=== PATIENT | female | born 1985 | race Caucasian/White ===

== ENCOUNTER 2022-02-25 13:00 | Inpatient (IN) | payer OTHER ==
[2022-02-25] MEDS ORDERED: OXYTOCIN 30 UNITS in 0.9% NS 30 UNIT/500 ML INFUS.BAG IVPB ONE (13:39)
[2022-02-25] MEDS ORDERED: SODIUM CHLORIDE 0.9% P/F 10 ML VIAL IJ ONE (13:40)
[2022-02-25] MEDS ORDERED: ceFAZolin SODIUM 1 GM VIAL ONE (13:40)
[2022-02-25] MEDS ORDERED: ONDANSETRON 4 MG/2 ML VIAL ONE (13:40)
[2022-02-25] MEDS ORDERED: morphine SULFATE/PF 1 MG/2 ML (2cc Syringe - QUVA) ONE (13:40)
[2022-02-25] MEDS ORDERED: KETOROLAC TROMETHAMINE 30 MG/1 ML VIAL ONE (13:40)
[2022-02-25] MEDS ORDERED: ePHEDrine SULFATE 50 MG/1 ML AMPULE ONE (13:41)
[2022-02-25] MEDS ORDERED: ELECTROLYTE-148 SOLN 1,000 ML IV SCH (14:00)
[2022-02-25] MEDS ORDERED: ELECTROLYTE-148 SOLN 500 ML IV ONE (14:00)
[2022-02-25] MEDS ORDERED: CITRIC ACID/SODIUM CITRATE 30 ML UNIT-DOSE CUP PO ONE (14:00)
[2022-02-25] MEDS ORDERED: IBUPROFEN 800 MG/8 ML IJ IVPB PRN (14:23)
[2022-02-25] MEDS ORDERED: ACETAMINOPHEN 325 MG TABLET (FP) PO PRN (14:23)
[2022-02-25 14:43] VITALS: BMI 33.6
[2022-02-25] MEDS ORDERED: ACETAMINOPHEN 1000 MG/100 ML BAG IVPB PRN (15:51)
[2022-02-25] MEDS ORDERED: ONDANSETRON 4 MG/2 ML VIAL IVPUSH PRN (15:51)
[2022-02-25] MEDS ORDERED: OXYTOCIN 20 UNITS in 0.9% NS 20 UNIT/1,000 ML INFUS.BAG IV ONE (17:02)
[2022-02-25] MEDS: OXYTOCIN 20 UNITS in 0.9% NS 20 UNIT/1,000 ML INFUS.BAG IV SCH (17:14)
[2022-02-26] MEDS: OXYTOCIN 20 UNITS in 0.9% NS 20 UNIT/1,000 ML INFUS.BAG IV SCH (01:06)
[2022-02-26] MEDS ORDERED: oxyCODONE HCL 5 MG TABLET PO PRN (02:23)
[2022-02-26 09:33] LABS: BASO % 0.3 % (0-2.0); EOS % 1.2 % (0-4.5); HEMATOCRIT 34.5 % (32.4-45.2); HEMOGLOBIN 11.7 GM/dL (10.7-15.3); LYMPH % 13.2 % (8-40); MEAN CELL VOLUME 88.2 fl (80-96); MEAN PLT VOLUME 8.8 fl (7.5-11.1); MONO % 6.2 % (3.8-10.2); NEUT % 79.1 % (42.8-82.8); PLATELET COUNT 193 10^3/uL (134-434); RBC 3.91 M/mm3 (3.60-5.2); RDW 17.2 % (11.6-15.6)
[2022-02-26] MEDS: IBUPROFEN 600 MG TABLET (FP) PO PRN ×2 (09:35→21:26)
[2022-02-26] MEDS ORDERED: BISACODYL 10 MG SUPP.RECT RC PRN (14:23)
[2022-02-26] MEDS: SIMETHICONE 80 MG TAB.CHEW (FP) PO PRN (21:25)
[2022-02-27 14:37] VITALS: RESP 18
[2022-02-27] MEDS: IBUPROFEN 600 MG TABLET (FP) PO PRN (15:51)
[2022-02-28] MEDS: IBUPROFEN 600 MG TABLET (FP) PO PRN (07:57)
[2022-02-28] MEDS: SIMETHICONE 80 MG TAB.CHEW (FP) PO PRN (07:57)
[2022-02-28 09:51] VITALS: BP 100/77; PULSE 77; TEMP 98.2
[2022-02-28 09:52] LABS: BASO % 0.2 % (0-2.0); EOS % 1.6 % (0-4.5); HEMATOCRIT 34.1 % (32.4-45.2); HEMOGLOBIN 11.9 GM/dL (10.7-15.3); LYMPH % 12.3 % (8-40); MCH 31.1 pg (25.7-33.7); MCHC 34.9 g/dl (32.0-36.0); MEAN CELL VOLUME 89.1 fl (80-96); MEAN PLT VOLUME 8.2 fl (7.5-11.1); MONO % 4.7 % (3.8-10.2); NEUT % 81.2 % (42.8-82.8); PLATELET COUNT 224 10^3/uL (134-434); RBC 3.82 M/mm3 (3.60-5.2); RDW 17.2 % (11.6-15.6); WHITE BLOOD COUNT 8.1 K/mm3 (4.0-10.0)
== END 2022-02-28 18:25 | disposition home or self-care (01) | DRG 540 ==
LOC: JLDR 13:00 → J3W 17:20 → UNDODISIN 02-28 12:15
PROVIDERS: ADMIT Student in an Organized Health Care Education/Training Program; ATTEND Student in an Organized Health Care Education/Training Program
PROC: 10D00Z1 Extraction of Products of Conception, Low, Open Approach (ICD-10-PCS; principal; 2022-02-25)
PROC: 0UT70ZZ Resection of Bilateral Fallopian Tubes, Open Approach (ICD-10-PCS; 2022-02-25)
DX: O34.219 Maternal care for unspecified type scar from previous cesarean delivery (principal); Z3A.39 39 weeks gestation of pregnancy; Z37.0 Single live birth; Z30.2 Encounter for sterilization
CPT/HCPCS: 36415; 85025; 88305-TC; 88307-TC; C9803-CS; U0003; U0005